=== PATIENT | female | born 1995 | race Caucasian/White ===

== ENCOUNTER 2017-06-05 16:31 | Emergency (ER) | payer OTHER ==
[2017-06-05 16:43] VITALS: BP 97/48; PULSE 70; TEMP 98.5; BMI 53.4
[2017-06-05 19:26] LABS: URINE APPEARANCE CLEAR; URINE BILIRUBIN NEGATIVE (NEGATIVE); URINE BLOOD NEGATIVE (NEGATIVE); URINE COLOR LTYELLOW; URINE GLUCOSE (UA) NEGATIVE (NEGATIVE); URINE KETONE NEGATIVE (NEGATIVE); URINE NITRITE NEGATIVE (NEGATIVE); URINE PROTEIN NEGATIVE (NEGATIVE); URINE UROBILINOGEN NEGATIVE mg/dL (0.2-1.0)
[2017-06-05 19:28] LABS: HCG,QUALITATIVE URINE POSITIVE; URINE LEUK ESTERASE 2+ (NEGATIVE)
[2017-06-05 19:50] LABS: EPI CELLS RARE /HPF (FEW); URINE BACTERIA RARE /hpf (NONE SEEN)
--- NOTE | 2017-06-05 21:44 | PDOC ---
History of Present Illness <Jenifer Brown - Last Filed: 06/05/17 23:38> - History of Present Illness Initial Comments: 06/05/17 23:59 Patient is a irish-speaking 22F, who presents with frequency and dysuria. Patient's presents today because she was worried of a possible UTI. Upon US results, patient was found to be 10 weeks and 6 days . Patient was unaware that she was and will follow-up with her doctor on [address] Denies vaginal bleeding. Denies hematuria. Denies nausea, vomit, diarrhea. Denies chest pain or shortness of breath. PCP: Jairo Antonio 06/06/17 00:20 <Leydi Cottrell - Last Filed: 06/06/17 00:21> - General Chief Complaint: Urinary Problem Stated Complaint: ABD PAIN (8 WKS ) Time Seen by Provider: 06/05/17 18:14 Past History - Past Medical History Asthma: No Cancer: No Cardiac Disorders: No COPD: No Diabetes: No HTN: No Seizures: No Thyroid Disease: No - Immunization History Immunization Up to Date: Yes - Suicide/Smoking/Psychosocial Hx Smoking History: Never smoked Have you smoked in the past 12 months: No Hx Alcohol Use: No Drug/Substance Use Hx: No Hx Substance Use Treatment: No <Jenifer Brown - Last Filed: 06/05/17 23:38> <Leydi Cottrell - Last Filed: 06/06/17 00:21> - Past Medical History Allergies/Adverse Reactions: Allergies Allergy/AdvReac Type Severity Reaction Status Date / Time No Known Allergies Allergy Verified 06/05/17 16:39 Home Medications: Ambulatory Orders Ferrous Sulfate 325 mg PO BID 05/29/16 Vitamins (Sjr) - 1 tab PO DAILY 05/29/16 Acetaminophen [Tylenol .Regular Strength -] 650 mg PO Q3H PRN #0 tablet Ferrous Sulfate [Feosol] 325 mg PO TIDCM ud 05/30/16 Ibuprofen [Motrin -] 200 mg PO Q4H PRN #0 tablet 05/30/16 Vitamins (Sjr) - 1 tab PO DAILY tablet 05/30/16 Review of Systems - Review of Systems Comments:: 06/06/17 00:03 CONSTITUTIONAL: Absent: fever, no chills, no fatigue EYES: Absent: visual changes ENT: Absent: ear pain, no sore throat CARDIOVASCULAR: Absent: chest pain, no palpitations RESPIRATORY: Absent: cough, no SOB GI: Absent: abdominal pain, no nausea, no vomiting, no constipation, no diarrhea GENITOURINARY: Present: dysuria, frequency Absent: no hematuria MUSCULOSKELETAL: Absent: back pain, no arthralgia, no myalgia SKIN: Absent: rash NEURO: Absent: headache <Leydi Cottrell - Last Filed: 06/06/17 00:21> *Physical Exam - Vital Signs Last Vital Signs Temp Pulse Resp BP Pulse Ox 98.5 F 70 18 97/48 100 06/05/17 16:39 06/05/17 16:39 06/05/17 16:39 06/05/17 16:39 06/05/17 16:39 <KevinJenifer Martha - Last Filed: 06/05/17 23:38> - Vital Signs Last Vital Signs Temp Pulse Resp BP Pulse Ox 98.5 F 70 18 97/48 100 06/05/17 16:39 06/05/17 16:39 06/05/17 16:39 06/05/17 16:39 06/05/17 16:39 - Physical Exam Comments: 06/06/17 00:05 GENERAL: Well-appearing, well-nourished. No apparent distress. HEENT: Normocephalic, atraumatic. PERRL, EOM intact. CARDIOVASCULAR: Normal S1, S2. Regular rate and rhythm. PULMONARY: Clear to auscultation bilaterally. ABDOMEN: Soft, non-distended, non-tender. EXTREMITIES: Normal ROM in all four extremities. No gross deformities. SKIN: Warm, dry. No rash NEUROLOGICAL: No focal neurological deficits. <Leydi Cottrell - Last Filed: 06/06/17 00:21> ED Treatment Course - ADDITIONAL ORDERS Additional order review: Laboratory Results 06/05/17 06/05/17 20:24 19:10 Beta HCG, Quant 93574.8 Urine Color Ltyellow Urine Appearance Clear Urine pH 8.0 Ur Specific [place] 1.004 Urine Protein Negative Urine Glucose (UA) Negative Urine Ketones Negative Urine Blood Negative Urine Nitrite Negative Urine Bilirubin Negative Urine Urobilinogen Negative Ur Leukocyte Esterase 2+ H Urine WBC (Auto) <1 Urine RBC (Auto) <1 Ur Epithelial Cells Rare Urine Bacteria Rare Urine HCG, Qual Positive - RADIOLOGY Radiology Studies Ordered: Category Date Time Status TRANSVAGINAL US PREG [US] Stat Ultrasound 06/05/17 21:41 Ordered <KevinJenifer Martha - Last Filed: 06/05/17 23:38> - ADDITIONAL ORDERS Additional order review: Laboratory Results 06/05/17 06/05/17 20:24 19:10 Beta HCG, Quant 02118.8 Urine Color Ltyellow Urine Appearance Clear Urine pH 8.0 Ur Specific [place] 1.004 Urine Protein Negative Urine Glucose (UA) Negative Urine Ketones Negative Urine Blood Negative Urine Nitrite Negative Urine Bilirubin Negative Urine Urobilinogen Negative Ur Leukocyte Esterase 2+ H Urine WBC (Auto) <1 Urine RBC (Auto) <1 Ur Epithelial Cells Rare Urine Bacteria Rare Urine HCG, Qual Positive - RADIOLOGY Radiograph Interpretation: 06/05/17 23:59 US OB Findings: Positive for a single live intrauterine gestation with measurements corresponding to approximately 10 weeks 6 days. A yolk sac is visualized. heart rate is approximately 148 beats per minute. Normal right ovary. 1 cm left ovarian cyst. Reported by: Dann Pitts MD 06/05/2017 23:33 <Leydi Cottrell - Last Filed: 06/06/17 00:21> *DC/Admit/Observation/Transfer <KevinJenifer Martha - Last Filed: 06/05/17 23:38> <Leydi Cottrell - Last Filed: 06/06/17 00:21> Diagnosis at time of Disposition: Qualifiers: Weeks of gestation: 10 weeks Qualified Code(s): Z3A.10 - 10 weeks gestation of - Discharge Dispostion Disposition: HOME Condition at time of disposition: Stable - Referrals Referrals: Jairo Antonio MD [Primary Care Provider] - - Patient Instructions Printed Discharge Instructions: DI for -- Discomforts and Remedies Additional Instructions: please follow up with your foot tender Print Language: CROATIAN - Post Discharge Activity
== END 2017-06-05 23:43 | disposition home or self-care (01) ==
LOC: JER 16:31 → JERFT 16:31 → JER 23:43
DX: O26.891 Other specified pregnancy related conditions, first trimester (principal); O34.81 Maternal care for other abnormalities of pelvic organs, first trimester; N83.202 Unspecified ovarian cyst, left side; Z3A.10 10 weeks gestation of pregnancy
CPT/HCPCS: 36415; 76817-TC; 81003; 81015; 84702; 84703; 87086; 99281-25

== ENCOUNTER 2019-06-25 17:29 | Emergency (ER) | payer OTHER ==
--- NOTE | 2019-06-25 17:53 | PDOC ---
Rapid Medical Evaluation Medical Evaluation: Allergies Allergy/AdvReac Type Severity Reaction Status Date / Time No Known Allergies Allergy Verified 06/05/17 16:39 I have performed a brief in-person evaluation of this patient. The patient presents with a chief complaint of: dysuria x 1 week and LBP x 3 days; is 11 weeks ; whitish vaginal d/c as well, denies vag bleeding Pertinent physical exam findings: Pelvic deferred I have ordered the following: Labs, pelvic US The patient will proceed to the ED for further evaluation. 06/25/19 17:51
[2019-06-25 17:54] VITALS: PULSE 75; TEMP 98.1; BMI 29.0
[2019-06-25 18:40] LABS: BASO % 0.6 % (0-2.0); EOS % 1.6 % (0-4.5); HEMATOCRIT 36.5 % (32.4-45.2); HEMOGLOBIN 12.2 GM/dL (10.7-15.3); LYMPH % 22.2 % (8-40); MCH 30.3 pg (25.7-33.7); MCHC 33.5 g/dl (32.0-36.0); MEAN CELL VOLUME 90.5 fl (80-96); MEAN PLT VOLUME 8.3 fl (7.5-11.1); MONO % 6.3 % (3.8-10.2); NEUT % 69.3 % (42.8-82.8); PLATELET COUNT 206 K/MM3 (134-434); RBC 4.03 M/mm3 (3.60-5.2); RDW 13.7 % (11.6-15.6); WHITE BLOOD COUNT 7.7 K/mm3 (4.0-10.0)
[2019-06-25 18:56] LABS: EPI CELLS 3.4 /HPF (0-5/HPF); HYALINE CASTS 2 /lpf (0-8); PH,URINE 5.5 (5.0-8.0); URINE APPEARANCE CLEAR; URINE BACTERIA 24.4 /hpf (NEGATIVE); URINE BILIRUBIN NEGATIVE (NEGATIVE); URINE COLOR YELLOW; URINE GLUCOSE (UA) NEGATIVE (NEGATIVE); URINE KETONE NEGATIVE (NEGATIVE); URINE LEUK ESTERASE TRACE (NEGATIVE); URINE NITRITE NEGATIVE (NEGATIVE); URINE PROTEIN NEGATIVE (NEGATIVE); URINE RBC 2 /hpf (0-4); URINE WBC 1 /hpf (0-5)
[2019-06-25 19:45] LABS: ALBUMIN 3.4 g/dl (3.4-5.0); BILIRUBIN,TOTAL 0.4 mg/dL (0.2-1); BLOOD UREA NITROGEN 7.3 mg/dL (7-18); CALCIUM 8.9 mg/dL (8.5-10.1); CREATININE 0.4 mg/dL (0.55-1.3); POTASSIUM 3.6 mmol/L (3.5-5.1); TOT PROT 6.8 g/dl (6.4-8.2)
--- NOTE | 2019-06-25 20:58 | PDOC ---
History of Present Illness - General Chief Complaint: Pain Stated Complaint: BACK PAIN/11 WKS PREG. Time Seen by Provider: 06/25/19 17:51 Exam Limitations: Language Barrier (ciracom) - History of Present Illness Initial Comments: 06/25/19 21:09 24 year old female c/o back pain/ vaginal discharge x 1 week reports that she is 11 weeks . + dysuria , frequency of urinations,.denies vaginal bleeding, urinary symptoms. 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 Past History - Past Medical History Allergies/Adverse Reactions: Allergies Allergy/AdvReac Type Severity Reaction Status Date / Time No Known Allergies Allergy Verified 06/25/19 17:54 Home Medications: Ambulatory Orders Ferrous Sulfate 325 mg PO BID 05/29/16 Vitamins (Sjr) - 1 tab PO DAILY tablet 05/30/16 Acetaminophen [Tylenol .Regular Strength -] 650 mg PO Q3H PRN tablet 12/21/17 Ferrous Sulfate [Feosol] 325 mg PO BIDWM tab 12/21/17 Ibuprofen [Motrin -] 200 mg PO Q4H PRN tablet 12/21/17 Vitamins (Sjr) - 1 tab PO DAILY tablet 12/21/17 Cephalexin Monohydrate [Keflex -] 500 mg PO BID #20 capsule 06/25/19 Miconazole Nitrate 1 applic TP BID #1 cream..g. 06/25/19 Asthma: No Cancer: No Cardiac Disorders: No COPD: No Diabetes: No HTN: No Seizures: No Thyroid Disease: No - Immunization History Immunization Up to Date: Yes - Psycho Social/Smoking Cessation Hx Smoking History: Never smoked Have you smoked in the past 12 months: No Hx Alcohol Use: No Drug/Substance Use Hx: No Hx Substance Use Treatment: No Review of Systems - Review of Systems Able to Perform ROS?: Yes Is the patient limited Malagasy proficient: No ABD/GI: No: Symptoms Reported, See HPI, Abdominal Distended, Abd. Pain w/ defecation, Blood Streaked Bowels, Constipated, Diarrhea, Difficulty Swallowing , Nausea, Poor Appetite, Poor Fluid Intake, Rectal Bleeding, Vomiting, Indigestion, Abdominal cramping, Tarry Stools, Other : Yes: Dysuria, Frequency. No: Symptoms Reported, See HPI, Burning, Discharge , Flank Pain, Hematuria, Incontinence, Pain, Urgency, Testicular Mass, Testicular Swelling, Lesions, Testicular Pain, Other Musculoskeletal: Yes: Back Pain. No: Symptoms Reported, See HPI, Gout, Joint Pain, Joint Swelling, Muscle Pain, Muscle Weakness, Neck Pain, Joint Stiffness, Other *Physical Exam - Vital Signs Last Vital Signs Temp Pulse Resp BP Pulse Ox 98.1 F 75 18 98/54 L 99 06/25/19 17:50 06/25/19 17:50 06/25/19 17:50 06/25/19 17:50 06/25/19 17:50 - Physical Exam General Appearance: Yes: Appropriately Dressed Respiratory/Chest: positive: Lungs Clear Female Pelvic Exam: positive: normal external exam, cervical os closed, other ( cottage cheese appearing vaginal discharge) Gastrointestinal/Abdominal: positive: Normal Bowel Sounds, Soft. negative: Tender Integumentary: positive: Normal Color, Dry, Warm Neurologic: positive: Fully Oriented, Alert, Normal Mood/Affect ED Treatment Course - LABORATORY CBC & Chemistry Diagram: 06/25/19 18:10 06/25/19 18:10 - ADDITIONAL ORDERS Additional order review: Laboratory Results 06/25/19 06/25/19 18:10 18:10 Sodium 139 Potassium 3.6 Chloride 105 Carbon Dioxide 28 Anion Gap 7 L BUN 7.3 Creatinine 0.4 L Est GFR (CKD-EPI)AfAm 166.61 Est GFR (CKD-EPI)NonAf 143.75 Random Glucose 97 Calcium 8.9 Total Bilirubin 0.4 AST 21 ALT 36 Alkaline Phosphatase 74 Total Protein 6.8 Albumin 3.4 Beta HCG, Quant 71353.8 Urine Color Yellow Urine Appearance Clear Urine pH 5.5 D Ur Specific [place] 1.021 Urine Protein Negative Urine Glucose (UA) Negative Urine Ketones Negative Urine Blood Trace Urine Nitrite Negative Urine Bilirubin Negative Urine Urobilinogen 1.0 Ur Leukocyte Esterase Trace Urine WBC (Auto) 1 Urine RBC (Auto) 2 Urine Casts (Auto) 2 U Epithel Cells (Auto) 3.4 Urine Bacteria (Auto) 24.4 06/25/19 18:10 RBC 4.03 MCV 90.5 MCHC 33.5 RDW 13.7 MPV 8.3 Neutrophils % 69.3 Lymphocytes % 22.2 D Monocytes % 6.3 Eosinophils % 1.6 Basophils % 0.6 ED Progress Note - Progress Note Progress Note: 06/25/19 21:15 A: uti P: US cbc cmp beta hcg UA Discharge - Discharge Information Problems reviewed: Yes Clinical Impression/Diagnosis: Candidiasis, vagina UTI (urinary tract infection) Qualifiers: Urinary tract infection type: acute cystitis Hematuria presence: without hematuria Qualified Code(s): N30.00 - Acute cystitis without hematuria Qualifiers: Weeks of gestation: 12 weeks Qualified Code(s): Z3A.12 - 12 weeks gestation of Condition: Fair Disposition: HOME - Additional Discharge Information Prescriptions: Cephalexin Monohydrate [Keflex -] 500 mg PO BID #20 capsule Miconazole Nitrate 1 applic TP BID #1 cream..g. - Follow up/Referral - Patient Discharge Instructions Patient Printed Discharge Instructions: Urinary Tract Infection Additional Instructions: Drink plenty of fluids Take cephalexin as prescribed Follow-up with your primary care doctor as soon as possible. You need to repeat urine test once your antibiotic is completed. We will call you if you're antibiotic needs to be changed. - Post Discharge Activity Work/Back to School Note: Back to Work
[2019-06-25 22:18] VITALS: BP 104/86
== END 2019-06-25 22:18 | disposition home or self-care (01) ==
LOC: JER 17:29
DX: O26.891 Other specified pregnancy related conditions, first trimester (principal); O98.811 Other maternal infectious and parasitic diseases complicating pregnancy, first trimester; B37.3 Candidiasis of vulva and vagina; O23.11 Infections of bladder in pregnancy, first trimester; N30.00 Acute cystitis without hematuria; Z3A.12 12 weeks gestation of pregnancy
CPT/HCPCS: 36415; 76801-TC; 80053; 81003; 84702; 85025; 87086; 99284-25

== ENCOUNTER 2020-01-04 02:20 | Inpatient (IN) | payer OTHER ==
[2020-01-04] MEDS ORDERED: OXYTOCIN 20 UNITS in 0.9% NS 20 UNIT/1,000 ML INFUS.BAG IV ONE ×2 (07:31→09:27)
[2020-01-04] MEDS ORDERED: DEXTROSE 5%-LACTATED RINGERS 1,000 ML IV SCH (07:45)
--- NOTE | 2020-01-04 07:45 | HP ---
Past Medical History - Primary Care Physician PCP:: Jesus Srivastava - Admission Chief Complaint: 40 weeks, labor History of Present Illness: 24 yo f in labor cx 6 cm, 100 vx 0 ,mi, fhr cat 1, regular contraction, care at [facility] ,no complication History Source: Patient Limitations to Obtaining History: Language Barrier - Past Medical History Gastrointestinal: Yes: Constipation. No: Hemorrhoids ...: 5 ...Para: 3 ...Term: 3 ...: 0 ...Spon : 1 ...Induced : 0 ...Living Children: 3 ...LMP: 04/10/19 ... Weeks Gestation by Dates: 38.3 ...EDC by Dates: 01/15/20 ...EDC by Sono: 01/04/20 Heme/Onc: Yes: Anemia (rx po iron & vit) - Past Surgical History Past Surgical History: Yes: None Hx Myomectomy: No Hx Transabdominal Cerclage: No - Smoking History Smoking history: Never smoked Have you smoked in the past 12 months: No - Alcohol/Substance Use Hx Alcohol Use: No History of Substance Use: reports: None - Social History Usual Living Arrangement: Yes: With Spouse History of Recent Travel: No Home Medications - Allergies Allergies/Adverse Reactions: Allergies Allergy/AdvReac Type Severity Reaction Status Date / Time No Known Allergies Allergy Verified 06/25/19 17:54 - Home Medications Home Medications: Ambulatory Orders Ferrous Sulfate 325 mg PO BID 05/29/16 Vitamins (Sjr) - 1 tab PO DAILY tablet 05/30/16 Acetaminophen [Tylenol .Regular Strength -] 650 mg PO Q3H PRN tablet 12/21/17 Ferrous Sulfate [Feosol] 325 mg PO BIDWM tab 12/21/17 Ibuprofen [Motrin -] 200 mg PO Q4H PRN tablet 12/21/17 Vitamins (Sjr) - 1 tab PO DAILY tablet 12/21/17 Cephalexin Monohydrate [Keflex -] 500 mg PO BID #20 capsule 06/25/19 Miconazole Nitrate 1 applic TP BID #1 cream..g. 06/25/19 Review of Systems - Review of Systems Constitutional: reports: No Symptoms Eyes: reports: No Symptoms HENT: reports: No Symptoms Neck: reports: No Symptoms Cardiovascular: reports: No Symptoms Respiratory: reports: No Symptoms Gastrointestinal: reports: No Symptoms Genitourinary: reports: No Symptoms Breasts: reports: No Symptoms Reported Musculoskeletal: reports: No Symptoms Integumentary: reports: No Symptoms Neurological: reports: No Symptoms Endocrine: reports: No Symptoms Hematology/Lymphatic: reports: No Symptoms Psychiatric: reports: No Symptoms Physical Exam - Maternity Vital Signs: Vital Signs Temperature 98.3 F 01/04/20 03:00 Pulse Rate 59 L 01/04/20 03:00 Respiratory Rate 18 01/04/20 03:00 Blood Pressure 121/66 01/04/20 03:00 O2 Sat by Pulse Oximetry (%) Constitutional: Yes: Well Nourished, No Distress, Calm Eyes: Yes: WNL, Conjunctiva Clear, EOM Intact HENT: Yes: WNL, Atraumatic, Normocephalic Neck: Yes: WNL, Supple, Trachea Midline Cardiovascular: Yes: WNL, Regular Rate and Rhythm Breast(s): Yes: WNL - Abdominal Exam/OB Fundal Height: 38 Number of Fetuses: Single Presentation: Vertex Contractions: Yes Regularity: Regular Intensity: Mod/Strong Monitor Mode: External Heart Rate Location: [facility] Category: I Accelerations: Non-Uniform Decelerations: None - Vaginal Exam/OB Vaginal Bleeding: No Speculum Exam: No Dilatation (cm): 6 Effacement (%): 80 Amniotic Membrane Status: Intact Presentation: Vertex/Position Station: 0 - Physical Exam Musculoskeletal: Yes: WNL Extremities: Yes: WNL Edema: LLE: Trace, RLE: Trace Deep Tendon Reflex Grade: Normal +2 Psychiatric: Yes: WNL Hemorrhage Risk Assessment - Risk Factors Medium Risk Factors: Yes: Multiple gestation Risk Score: 1 Risk Level: Medium Risk Problem List - Problems (1) 40 weeks gestation of Code(s): Z3A.40 - 40 WEEKS GESTATION OF (2) Labor established Code(s): [id number] - Assessment/Plan admit fhm gbs negative expect vaginal delivery declined pain meds
[2020-01-04] MEDS ORDERED: METHYLERGONOVINE MALEATE 0.2 MG/1 ML AMP IM PRN (08:09)
[2020-01-04] MEDS ORDERED: WITCH HAZEL 50% (TUCKS) 40 PAD/JAR PAD TP PRN (08:09)
[2020-01-04] MEDS ORDERED: BISACODYL 10 MG SUPP.RECT RC PRN (08:09)
[2020-01-04] MEDS ORDERED: BENZOCAINE 28 GM HEMORRHOIDAL OINTMENT TP PRN (08:09)
[2020-01-04] MEDS ORDERED: BENZOCAINE 20% 57 GM BOTTLE TP PRN (08:09)
--- NOTE | 2020-01-04 08:14 | PN ---
Delivery - Delivery Vaginal Delivery: Spontaneous Type of Anesthesia: None Episiotomy/Laceration: None (cx full , head delivered , veronica, no cord, ant.and post, shoulder with no difficulty . live baby girl 9/9 , placenta complete, no laceration , ebl 300cc, baby bonded with mom)
[2020-01-04] MEDS ORDERED: OXYTOCIN 20 UNITS in 0.9% NS 20 UNIT/1,000 ML INFUS.BAG IV SCH (08:15)
[2020-01-04] MEDS ORDERED: IBUPROFEN 600 MG TABLET (FP) PO ONE (08:28)
[2020-01-04] MEDS ORDERED: ACETAMINOPHEN 325 MG TABLET (FP) ONE (08:28)
[2020-01-04] MEDS: ACETAMINOPHEN 325 MG TABLET (FP) PO PRN ×2 (08:34→14:06)
[2020-01-04] MEDS: IBUPROFEN 600 MG TABLET (FP) PO PRN ×2 (08:34→14:06)
[2020-01-04 08:49] VITALS: BMI 32.0
[2020-01-04 08:52] LABS: INR 0.88 (0.83-1.09); PROTHROMBIN TIME (PATIENT) 10.4 SEC (9.7-13.0)
[2020-01-04 08:55] LABS: ACTIVATED PTT 27.2 SECONDS (25.2-36.5)
[2020-01-04 09:22] LABS: BLOOD UREA NITROGEN 3.7 mg/dL (7-18); CALCIUM 7.9 mg/dL (8.5-10.1); CREATININE 0.5 mg/dL (0.55-1.3); POTASSIUM 3.7 mmol/L (3.5-5.1)
[2020-01-04 09:28] LABS: BASO % 0.4 % (0-2.0); EOS % 0.4 % (0-4.5); HEMATOCRIT 36.2 % (32.4-45.2); HEMOGLOBIN 11.7 GM/dL (10.7-15.3); LYMPH % 18.9 % (8-40); MCH 27.2 pg (25.7-33.7); MCHC 32.3 g/dl (32.0-36.0); MEAN CELL VOLUME 84.4 fl (80-96); MONO % 5.9 % (3.8-10.2); NEUT % 74.4 % (42.8-82.8); PLATELET COUNT 210 K/MM3 (134-434); RDW 14.5 % (11.6-15.6)
[2020-01-04] MEDS: FERROUS SO4 325 MG TABLET (FP) PO SCH (18:39)
[2020-01-05] MEDS: FERROUS SO4 325 MG TABLET (FP) PO SCH ×2 (09:19→18:23)
[2020-01-05] MEDS: ACETAMINOPHEN 325 MG TABLET (FP) PO PRN (09:20)
[2020-01-05] MEDS: IBUPROFEN 600 MG TABLET (FP) PO PRN (09:20)
[2020-01-05] MEDS: PRENATAL VITAMINS W/ FOLIC ACID TABLET (FP) PO SCH ×2 (09:20→13:01)
[2020-01-05] MEDS ORDERED: DIPHTH,PERTUSS(ACELL),TET 0.5 ML DISP.SYRIN IM ONE (10:00)
[2020-01-05 10:03] LABS: BASO % 0.6 % (0-2.0); EOS % 1.3 % (0-4.5); HEMATOCRIT 33.3 % (32.4-45.2); HEMOGLOBIN 10.8 GM/dL (10.7-15.3); LYMPH % 27.2 % (8-40); MCH 27.7 pg (25.7-33.7); MCHC 32.6 g/dl (32.0-36.0); MEAN CELL VOLUME 84.9 fl (80-96); MONO % 5.8 % (3.8-10.2); NEUT % 65.1 % (42.8-82.8); PLATELET COUNT 196 K/MM3 (134-434); RBC 3.92 M/mm3 (3.60-5.2); RDW 14.6 % (11.6-15.6); WHITE BLOOD COUNT 6.6 K/mm3 (4.0-10.0)
--- NOTE | 2020-01-05 12:15 | PN ---
Post Progress Note - Subjective Subjective: 24 yo Para 4, status post vaginal delivery, seen and evaluated. Doing well. Post Day: 1 Type of Delivery: Vital Signs: Vital Signs Temperature 98.1 F 01/04/20 20:21 Pulse Rate 70 01/04/20 20:21 Respiratory Rate 20 01/04/20 20:21 Blood Pressure 96/60 01/04/20 20:21 O2 Sat by Pulse Oximetry (%) 100 01/04/20 09:45 Breast Exam: Yes: Soft Uterus: Yes: Fundus Firm Abdomen/GI: Yes: Abdomen soft, Tolerating PO Lochia: Yes: Rubra Lochia, amount: Moderate Extremities: Yes: Calves non-tender Activity: Ambulating - Labs Labs: CBC WBC 6.6 K/mm3 (4.0-10.0) 01/05/20 09:30 RBC 3.92 M/mm3 (3.60-5.2) 01/05/20 09:30 Hgb 10.8 GM/dL (10.7-15.3) 01/05/20 09:30 Hct 33.3 % (32.4-45.2) 01/05/20 09:30 MCV 84.9 fl (80-96) 01/05/20 09:30 MCH 27.7 pg (25.7-33.7) 01/05/20 09:30 MCHC 32.6 g/dl (32.0-36.0) 01/05/20 09:30 RDW 14.6 % (11.6-15.6) 01/05/20 09:30 Plt Count 196 K/MM3 (134-434) 01/05/20 09:30 MPV 9.0 fl (7.5-11.1) 01/05/20 09:30 Absolute Neuts (auto) 4.3 K/mm3 (1.5-8.0) 01/05/20 09:30 Neutrophils % 65.1 % (42.8-82.8) 01/05/20 09:30 Lymphocytes % 27.2 % (8-40) D 01/05/20 09:30 Monocytes % 5.8 % (3.8-10.2) 01/05/20 09:30 Eosinophils % 1.3 % (0-4.5) D 01/05/20 09:30 Basophils % 0.6 % (0-2.0) 01/05/20 09:30 Nucleated RBC % 0 % (0-0) 01/05/20 09:30 Problem List - Problems (1) Status post normal vaginal delivery Code(s): [id number] - Assessment/Plan Status post vaginal delivery Stable Continue routine care
[2020-01-05 21:36] VITALS: BP 103/66
[2020-01-05] MEDS ORDERED: SENNOSIDES/DOCUSATE COMBO (SENNA PLUS) TABLET (UD) PO PRN (22:00)
[2020-01-06 09:00] VITALS: PULSE 75; TEMP 98.8
[2020-01-06] MEDS: FERROUS SO4 325 MG TABLET (FP) PO SCH (09:55)
[2020-01-06] MEDS: PRENATAL VITAMINS W/ FOLIC ACID TABLET (FP) PO SCH (09:55)
--- NOTE | 2020-01-09 15:10 | DS ---
Physical Exam-ENTRY LEVEL FINANCE Vital Signs: Vital Signs Temperature 98.8 F 01/06/20 08:30 Pulse Rate 75 01/06/20 08:30 Respiratory Rate 18 01/06/20 08:30 Blood Pressure 103/66 01/06/20 08:30 O2 Sat by Pulse Oximetry (%) 100 01/04/20 09:45 Constitutional: Yes: No Distress Eyes: Yes: Conjunctiva Clear HENT: Yes: Atraumatic Neck: Yes: Supple Cardiovascular: Yes: Regular Rate and Rhythm Respiratory: Yes: Regular Gastrointestinal: Yes: Normal Bowel Sounds External Genitalia: Yes: Normal Vaginal Exam: Yes: Normal Cervix: Yes: Normal Uterus: Yes: Firm ....Post : Yes: Uterus firm, Moderate lochia serosa Musculoskeletal: Yes: WNL Extremities: Yes: WNL Neurological: Yes: Alert, Oriented ...Motor Strength: WNL Psychiatric: Yes: Alert, Oriented Labs: CBC, BMP 01/05/20 09:30 01/04/20 08:10 Delivery - Delivery Vaginal Delivery: Spontaneous Type of Anesthesia: None Episiotomy/Laceration: None EBL (cc): 300 Delivery, Single - Stages of Labor Date 1st Stage Initiatied: 01/03/20 Time 1st Stage Initiated: 19:00 Date 2nd Stage Initiated: 01/04/20 Time 2nd Stage Initiated: 07:50 Date of Delivery: 01/04/20 Time of Delivery: 07:56 Time Placenta Delivered: 08:00 - 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: No Gender: Female Weight: 6 lb 11 oz Position: Left, OA Total Hours ROM (Hrs/Mins): 0hrs 30min - 1 Minute Total Score: 9 5 Minutes Total Score: 9 - Feeding Plan Initial Plan: Elected not to breastfeed exclusively throughout hospitalization Discharge Summary Problems reviewed: Yes Reason For Visit: LABOR Procedures: Principal: Normal spontaneous vaginal delivery Hospital Course: Routine care Health Concerns: None Plan of Treatment: Analgesia as needed F/U in clinic in 6 weeks Goals: Resume regular activities in 6 weeks Condition: Good - Instructions Diet, Activity, Other Instructions: Regular diet No douching, no sexual intercourse x 6 weeks F/U in clinic in 6 weeks Referrals: Ashly Kern MD [Staff Physician] - Disposition: HOME - Home Medications Comprehensive Discharge Medication List: Ambulatory Orders Ferrous Sulfate 325 mg PO BID 05/29/16 Vitamins (Sjr) - 1 tab PO DAILY tablet 05/30/16 Acetaminophen [Tylenol .Regular Strength -] 650 mg PO Q3H PRN tablet 12/21/17 Ferrous Sulfate [Feosol] 325 mg PO BIDWM tab 12/21/17 Ibuprofen [Motrin -] 200 mg PO Q4H PRN tablet 12/21/17 Vitamins (Sjr) - 1 tab PO DAILY tablet 12/21/17 Cephalexin Monohydrate [Keflex -] 500 mg PO BID #20 capsule 06/25/19 Miconazole Nitrate 1 applic TP BID #1 cream..g. 06/25/19
== END 2020-01-06 14:30 | disposition home or self-care (01) | DRG 560 ==
LOC: JDEL 02:20 → JLDR 07:19 → J3W 12:30
PROVIDERS: ADMIT Obstetrics & Gynecology; ATTEND Obstetrics & Gynecology
PROC: 10E0XZZ Delivery of Products of Conception, External Approach (ICD-10-PCS; principal; 2020-01-04)
DX: O48.0 Post-term pregnancy (principal); Z37.0 Single live birth; Z3A.40 40 weeks gestation of pregnancy; Z86.2 Personal history of diseases of the blood and blood-forming organs and certain disorders involving the immune mechanism; Z87.19 Personal history of other diseases of the digestive system
CPT/HCPCS: 36415; 59025; 59409; 80048; 85025; 85610; 85730; 86780; 86850; 86900; 86901; 90715; U0003

== ENCOUNTER 2020-11-18 20:56 | Emergency (ER) | payer OTHER ==
[2020-11-18 21:52] VITALS: BP 121/78; PULSE 87; TEMP 98.2; BMI 81.1
[2020-11-18] MEDS ORDERED: ACETAMINOPHEN 1000 MG/100 ML VIAL (NON FORMULARY) IVPB ONE (22:06)
[2020-11-18] MEDS ORDERED: METOCLOPRAMIDE HCL INJECTION 10 MG/2 ML VIAL IVPUSH ONE (22:06)
[2020-11-18] MEDS ORDERED: LACTATED RINGERS SOLUTION 1000 ML INFUS.BAG IV ONE (22:06)
[2020-11-18] MEDS ORDERED: ACETAMINOPHEN INJECTION 100 ML IVPB ONE (22:26)
[2020-11-18] MEDS ORDERED: METOCLOPRAMIDE HCL INJECTION 10 MG/2 ML VIAL ONE (22:26)
[2020-11-18 22:55] LABS: BASO % 0.8 % (0-2.0); EOS % 1.1 % (0-4.5); HEMATOCRIT 40.8 % (32.4-45.2); HEMOGLOBIN 13.6 GM/dL (10.7-15.3); LYMPH % 22.6 % (8-40); MCH 29.4 pg (25.7-33.7); MCHC 33.3 g/dl (32.0-36.0); MEAN CELL VOLUME 88.3 fl (80-96); MEAN PLT VOLUME 7.7 fl (7.5-11.1); MONO % 10.7 % (3.8-10.2); NEUT % 64.8 % (42.8-82.8); PLATELET COUNT 192 10^3/uL (134-434); RBC 4.62 M/mm3 (3.60-5.2); RDW 13.4 % (11.6-15.6); WHITE BLOOD COUNT 7.3 K/mm3 (4.0-10.0)
[2020-11-18 23:00] LABS: HCG,QUALITATIVE URINE Negative
[2020-11-18 23:01] LABS: EPI CELLS 16 /uL (0-25.1); HYALINE CASTS 1 /uL (0-3.1); PH,URINE 6.5 (5.0-8.0); URINE APPEARANCE CLEAR; URINE BACTERIA 48 /uL (0-1359); URINE BILIRUBIN NEGATIVE (NEGATIVE); URINE COLOR YELLOW; URINE GLUCOSE (UA) NEGATIVE (NEGATIVE); URINE KETONE NEGATIVE (NEGATIVE); URINE LEUK ESTERASE 2+ (NEGATIVE); URINE NITRITE NEGATIVE (NEGATIVE); URINE PROTEIN TRACE (NEGATIVE); URINE RBC 34 /uL (0-23.9); URINE WBC 209 /uL (0-25.8)
[2020-11-18 23:16] LABS: ALBUMIN 4.1 g/dl (3.4-5.0); BLOOD UREA NITROGEN 15.8 mg/dL (7-18); CALCIUM 8.3 mg/dL (8.5-10.1); MAGNESIUM 2.1 mg/dL (1.8-2.4)
[2020-11-18 23:20] LABS: CREATININE 0.8 mg/dL (0.55-1.3)
[2020-11-18 23:22] LABS: BILIRUBIN,TOTAL 0.4 mg/dL (0.2-1); TOT PROT 7.8 g/dl (6.4-8.2)
[2020-11-18] MEDS ORDERED: SULFAMETHOXAZOLE/TRIMETHOPRIM 800MG/160MG D.S. TABLET PO ONE (23:28)
[2020-11-18] MEDS ORDERED: SULFAMETHOXAZOLE/TRIMETHOPRIM 800MG/160MG D.S. TABLET ONE (23:48)
== END 2020-11-19 00:03 | disposition home or self-care (01) ==
LOC: JER 20:56
PROC: 3E0333Z Introduction of Anti-inflammatory into Peripheral Vein, Percutaneous Approach (ICD-10-PCS; principal; 2020-11-18)
PROC: 3E033GC Introduction of Other Therapeutic Substance into Peripheral Vein, Percutaneous Approach (ICD-10-PCS; 2020-11-18)
DX: N39.0 Urinary tract infection, site not specified (principal)
CPT/HCPCS: 36415; 80053; 81003; 83735; 84703; 85025; 85730; 87086; 87491; 87591; 87661; 99284-25; C9803; J0131; U0003; U0005

== ENCOUNTER 2021-08-03 01:19 | Emergency (ER) | payer OTHER ==
[2021-08-03 01:36] VITALS: BP 110/62; PULSE 71; TEMP 98.4; BMI 24.0
[2021-08-03] MEDS ORDERED: CEPHALEXIN MONOHYDRATE 500 MG CAPSULE (UD) PO ONE (02:28)
[2021-08-03] MEDS ORDERED: DOXYCYCLINE HYCLATE 100 MG CAPSULE PO ONE ×2 (02:38→02:43)
== END 2021-08-03 04:49 | disposition home or self-care (01) ==
LOC: JER 01:19
DX: L03.211 Cellulitis of face (principal)
CPT/HCPCS: 99283-25

== ENCOUNTER 2021-11-21 21:29 | Emergency (ER) | payer OTHER ==
[2021-11-21 21:59] VITALS: BP 104/52; PULSE 67; RESP 18; TEMP 97.2; BMI 25.8
[2021-11-21] MEDS ORDERED: SODIUM CHLORIDE 1,000 ML IV STA (22:20)
[2021-11-21 23:14] LABS: EPI CELLS 31 /uL (0-25.1); HYALINE CASTS 1 /uL (0-3.1); PH,URINE 7.5 (5.0-8.0); URINE APPEARANCE CLEAR; URINE BACTERIA 401 /uL (0-1359); URINE BILIRUBIN NEGATIVE (NEGATIVE); URINE COLOR YELLOW; URINE GLUCOSE (UA) NEGATIVE (NEGATIVE); URINE KETONE NEGATIVE (NEGATIVE); URINE LEUK ESTERASE 2+ (NEGATIVE); URINE NITRITE NEGATIVE (NEGATIVE); URINE PROTEIN NEGATIVE (NEGATIVE); URINE RBC 11 /uL (0-23.9); URINE WBC 30 /uL (0-25.8)
[2021-11-21 23:42] LABS: BASO % 0.6 % (0-2.0); EOS % 2.4 % (0-4.5); HEMATOCRIT 37.8 % (32.4-45.2); HEMOGLOBIN 12.8 GM/dL (10.7-15.3); LYMPH % 28.6 % (8-40); MCH 29.9 pg (25.7-33.7); MCHC 33.9 g/dl (32.0-36.0); MEAN CELL VOLUME 88.4 fl (80-96); MONO % 5.9 % (3.8-10.2); NEUT % 62.5 % (42.8-82.8); PLATELET COUNT 206 10^3/uL (134-434); RBC 4.28 M/mm3 (3.60-5.2); RDW 13.6 % (11.6-15.6)
[2021-11-22 00:10] LABS: BLOOD UREA NITROGEN 13.3 mg/dL (7-18); CALCIUM 8.7 mg/dL (8.5-10.1)
[2021-11-22 00:14] LABS: CREATININE 0.6 mg/dL (0.55-1.3)
[2021-11-22] MEDS ORDERED: CEPHALEXIN MONOHYDRATE 500 MG CAPSULE (UD) PO ONE (00:16)
[2021-11-22] MEDS ORDERED: CEPHALEXIN MONOHYDRATE 500 MG CAPSULE (UD) ONE (00:52)
== END 2021-11-22 01:01 | disposition home or self-care (01) ==
LOC: JER 21:29
PROC: 3E0337Z Introduction of Electrolytic and Water Balance Substance into Peripheral Vein, Percutaneous Approach (ICD-10-PCS; principal; 2021-11-21)
DX: U07.1 COVID-19 (principal); N39.0 Urinary tract infection, site not specified; Z3A.01 Less than 8 weeks gestation of pregnancy
CPT/HCPCS: 0241U-QW; 36415; 76817-TC; 80048; 81003; 84703; 85025; 87086; 99284-25

== ENCOUNTER 2022-07-03 03:00 | Inpatient (IN) | payer OTHER ==
[2022-07-03] MEDS ORDERED: MISOPROSTOL 200 MCG TABLET ONE (15:54)
[2022-07-03] MEDS ORDERED: OXYTOCIN 20 UNITS in 0.9% NS 20 UNIT/1,000 ML INFUS.BAG IV ONE (15:55)
[2022-07-03] MEDS ORDERED: LIDOCAINE HCL 1% PRESERVATIVE FREE - 30ML VIAL ONE (16:17)
[2022-07-03] MEDS ORDERED: WITCH HAZEL 50% (TUCKS) 40 PAD/JAR PAD TP PRN (16:39)
[2022-07-03] MEDS ORDERED: BISACODYL 10 MG SUPP.RECT RC PRN (16:39)
[2022-07-03] MEDS ORDERED: BENZOCAINE 28 GM HEMORRHOIDAL OINTMENT TP PRN (16:39)
[2022-07-03] MEDS ORDERED: MISOPROSTOL 100 MCG TABLET PV ONE (16:40)
[2022-07-03] MEDS ORDERED: OXYTOCIN 20 UNITS in 0.9% NS 20 UNIT/1,000 ML INFUS.BAG IV SCH (16:45)
[2022-07-03] MEDS ORDERED: ELECTROLYTE-148 SOLN 1,000 ML IV SCH (16:45)
[2022-07-03 17:15] VITALS: BMI 29.2
[2022-07-03] MEDS ORDERED: ACETAMINOPHEN 325 MG TABLET (FP) ONE (17:30)
[2022-07-03] MEDS: ACETAMINOPHEN 325 MG TABLET (FP) PO PRN ×2 (17:30→23:53)
[2022-07-03 17:33] LABS: CALCIUM 8.2 mg/dL (8.5-10.1)
[2022-07-03 17:34] LABS: BLOOD UREA NITROGEN 4.6 mg/dL (7-18)
[2022-07-03 17:37] LABS: CREATININE 0.5 mg/dL (0.55-1.3)
[2022-07-03 18:43] LABS: BASO % 0.2 % (0-2.0); EOS % 0.1 % (0-4.5); HEMATOCRIT 30.8 % (32.4-45.2); HEMOGLOBIN 9.9 GM/dL (10.7-15.3); MCH 27.8 pg (25.7-33.7); MEAN CELL VOLUME 86.9 fl (80-96); MEAN PLT VOLUME 7.6 fl (7.5-11.1); MONO % 3.9 % (3.8-10.2); NEUT % 88.8 % (42.8-82.8); PLATELET COUNT 188 10^3/uL (134-434); RBC 3.54 M/mm3 (3.60-5.2); RDW 16.6 % (11.6-15.6); WHITE BLOOD COUNT 13.2 K/mm3 (4.0-10.0)
[2022-07-03 18:48] LABS: INR 1.07 (0.83-1.09); PROTHROMBIN TIME (PATIENT) 12.4 SEC (9.7-13.0)
[2022-07-03] MEDS ORDERED: METHYLERGONOVINE MALEATE 0.2 MG/1 ML AMP IM ONE (20:20)
[2022-07-03] MEDS: IBUPROFEN 600 MG TABLET (FP) PO PRN (20:53)
[2022-07-04 07:58] LABS: BASO % 0.4 % (0-2.0); EOS % 0.7 % (0-4.5); HEMATOCRIT 29.7 % (32.4-45.2); HEMOGLOBIN 9.9 GM/dL (10.7-15.3); LYMPH % 23.4 % (8-40); MCH 28.9 pg (25.7-33.7); MCHC 33.3 g/dl (32.0-36.0); MEAN CELL VOLUME 86.8 fl (80-96); MONO % 7.6 % (3.8-10.2); NEUT % 67.9 % (42.8-82.8); PLATELET COUNT 190 10^3/uL (134-434); RBC 3.42 M/mm3 (3.60-5.2); RDW 16.7 % (11.6-15.6); WHITE BLOOD COUNT 9.7 K/mm3 (4.0-10.0)
[2022-07-04] MEDS: ACETAMINOPHEN 325 MG TABLET (FP) PO PRN ×2 (09:19→23:19)
[2022-07-04] MEDS: IBUPROFEN 600 MG TABLET (FP) PO PRN ×2 (14:27→19:38)
[2022-07-04] MEDS ORDERED: SENNOSIDES/DOCUSATE COMBO (SENNA PLUS) TABLET (UD) PO PRN (22:00)
[2022-07-04 22:25] VITALS: PULSE 75; RESP 16
[2022-07-05] MEDS: IBUPROFEN 600 MG TABLET (FP) PO PRN (05:25)
[2022-07-05 08:37] VITALS: BP 95/57; TEMP 98.1
[2022-07-05] MEDS: ACETAMINOPHEN 325 MG TABLET (FP) PO PRN (08:45)
== END 2022-07-05 15:10 | disposition home or self-care (01) | DRG 560 ==
LOC: JDEL 03:00 → JLDR 15:23 → J3W 20:31
PROVIDERS: ADMIT Student in an Organized Health Care Education/Training Program; ATTEND Student in an Organized Health Care Education/Training Program
PROC: 10E0XZZ Delivery of Products of Conception, External Approach (ICD-10-PCS; principal; 2022-07-03)
PROC: 0UQMXZZ Repair Vulva, External Approach (ICD-10-PCS; 2022-07-03)
DX: O70.0 First degree perineal laceration during delivery (principal); Z3A.39 39 weeks gestation of pregnancy; Z37.0 Single live birth
CPT/HCPCS: 36415; 59025; 59409; 80048; 85025; 85610; 85730; 86780; 86850; 86900; 86901; C9803-CS; U0003; U0005

== ENCOUNTER 2023-07-23 10:22 | Emergency (ER) | payer OTHER ==
[2023-07-23 10:37] VITALS: BP 110/50; PULSE 64; RESP 18; TEMP 97.5; BMI 32.5
[2023-07-23] MEDS ORDERED: ACETAMINOPHEN INJECTION 100 ML IVPB ONE (12:14)
[2023-07-23 12:17] LABS: BASO % 0.5 % (0-2.0); EOS % 2.1 % (0-4.5); HEMATOCRIT 39.4 % (32.4-45.2); HEMOGLOBIN 13.1 GM/dL (10.7-15.3); LYMPH % 24.2 % (8-40); MCH 30.1 pg (25.7-33.7); MCHC 33.3 g/dl (32.0-36.0); MEAN CELL VOLUME 90.5 fl (80-96); MEAN PLT VOLUME 7.6 fl (7.5-11.1); NEUT % 67.2 % (42.8-82.8); PLATELET COUNT 217 10^3/uL (134-434); RBC 4.36 M/mm3 (3.60-5.2); RDW 13.6 % (11.6-15.6); WHITE BLOOD COUNT 6.9 K/mm3 (4.0-10.0)
[2023-07-23 12:22] LABS: EPI CELLS 19 /uL (0-25.1); HYALINE CASTS 1 /uL (0-3.1); PH,URINE 5.5 (5.0-8.0); URINE APPEARANCE CLEAR; URINE BACTERIA 213 /uL (0-1359); URINE BILIRUBIN NEGATIVE (NEGATIVE); URINE COLOR YELLOW; URINE GLUCOSE (UA) NEGATIVE (NEGATIVE); URINE KETONE NEGATIVE (NEGATIVE); URINE LEUK ESTERASE 1+ (NEGATIVE); URINE NITRITE NEGATIVE (NEGATIVE); URINE PROTEIN NEGATIVE (NEGATIVE); URINE RBC 14 /uL (0-23.9); URINE WBC 16 /uL (0-25.8)
[2023-07-23 12:33] LABS: INR 1.05 (0.83-1.09); PROTHROMBIN TIME (PATIENT) 12.2 SEC (9.7-13.0)
[2023-07-23] MEDS: ACETAMINOPHEN 1000 MG/100 ML BAG IVPB ONE (12:35)
[2023-07-23 12:37] LABS: ACTIVATED PTT 32.9 SECONDS (25.2-36.5)
[2023-07-23 12:51] LABS: CALCIUM 8.6 mg/dL (8.5-10.1)
[2023-07-23 12:52] LABS: ALBUMIN 3.5 g/dl (3.4-5.0); BLOOD UREA NITROGEN 11.7 mg/dL (7-18)
[2023-07-23 12:55] LABS: CREATININE 0.5 mg/dL (0.55-1.3)
[2023-07-23 12:56] LABS: BILIRUBIN,TOTAL 0.6 mg/dL (0.2-1)
[2023-07-23 12:57] LABS: TOT PROT 6.7 g/dl (6.4-8.2)
[2023-07-23] MEDS ORDERED: CEPHALEXIN MONOHYDRATE 500 MG CAPSULE (UD) ONE (15:53)
[2023-07-23] MEDS: CEPHALEXIN MONOHYDRATE 500 MG CAPSULE (UD) PO ONE (15:57)
== END 2023-07-23 16:21 | disposition home or self-care (01) ==
LOC: JER 10:22
PROC: 3E033NZ Introduction of Analgesics, Hypnotics, Sedatives into Peripheral Vein, Percutaneous Approach (ICD-10-PCS; principal; 2023-07-23)
DX: O02.1 Missed abortion (principal); R30.0 Dysuria; R10.9 Unspecified abdominal pain
CPT/HCPCS: 36415; 76817-TC; 80053; 81003; 84702; 84703; 85025; 85610; 85730; 86850; 86900; 86901; 87086; 99284-25; J0131

== ENCOUNTER 2023-07-26 13:53 | Emergency (ER) | payer SELFPAY ==
[2023-07-26 14:23] VITALS: RESP 18; BMI 29.8
[2023-07-26] MEDS ORDERED: ACETAMINOPHEN INJECTION 100 ML IVPB ONE (14:33)
[2023-07-26 14:44] LABS: BASO % 0.4 % (0-2.0); EOS % 1.8 % (0-4.5); HEMATOCRIT 36.2 % (32.4-45.2); HEMOGLOBIN 12.3 GM/dL (10.7-15.3); LYMPH % 23.2 % (8-40); MCH 30.6 pg (25.7-33.7); MCHC 34.1 g/dl (32.0-36.0); MEAN CELL VOLUME 89.7 fl (80-96); MEAN PLT VOLUME 7.5 fl (7.5-11.1); MONO % 6.1 % (3.8-10.2); NEUT % 68.5 % (42.8-82.8); PLATELET COUNT 214 10^3/uL (134-434); RBC 4.03 M/mm3 (3.60-5.2); RDW 13.2 % (11.6-15.6); WHITE BLOOD COUNT 7.2 K/mm3 (4.0-10.0)
[2023-07-26] MEDS: SODIUM CHLORIDE 0.9% 500 ML INFUS.BAG IV ONE ×3 (14:44→22:00)
[2023-07-26] MEDS: ACETAMINOPHEN 1000 MG/100 ML BAG IVPB ONE (14:44)
[2023-07-26 14:51] LABS: INR 1.1 (0.83-1.09); PROTHROMBIN TIME (PATIENT) 12.8 SEC (9.7-13.0)
[2023-07-26 15:27] LABS: POTASSIUM 3.7 mmol/L (3.5-5.1)
[2023-07-26 15:29] LABS: CALCIUM 8.5 mg/dL (8.5-10.1)
[2023-07-26 15:30] LABS: ALBUMIN 3.3 g/dl (3.4-5.0); BLOOD UREA NITROGEN 6.6 mg/dL (7-18)
[2023-07-26 15:33] LABS: CREATININE 0.5 mg/dL (0.55-1.3)
[2023-07-26 15:34] LABS: TOT PROT 6.6 g/dl (6.4-8.2)
[2023-07-26 15:35] LABS: BILIRUBIN,TOTAL 0.5 mg/dL (0.2-1)
[2023-07-26] MEDS ORDERED: KETOROLAC TROMETHAMINE 15 MG/ML VIAL ONE (17:34)
[2023-07-26] MEDS: KETOROLAC TROMETHAMINE 15 MG/ML VIAL IVPUSH ONE (17:41)
[2023-07-26 19:56] LABS: BASO % 0.4 % (0-2.0); EOS % 1.5 % (0-4.5); HEMATOCRIT 30.8 % (32.4-45.2); HEMOGLOBIN 10.4 GM/dL (10.7-15.3); LYMPH % 26.3 % (8-40); MCH 30.2 pg (25.7-33.7); MCHC 33.7 g/dl (32.0-36.0); MEAN CELL VOLUME 89.6 fl (80-96); MEAN PLT VOLUME 7.3 fl (7.5-11.1); MONO % 5.7 % (3.8-10.2); NEUT % 66.1 % (42.8-82.8); PLATELET COUNT 213 10^3/uL (134-434); RBC 3.43 M/mm3 (3.60-5.2); RDW 13.4 % (11.6-15.6); WHITE BLOOD COUNT 7.8 K/mm3 (4.0-10.0)
[2023-07-26 21:31] VITALS: PULSE 64; TEMP 97.9
[2023-07-26] MEDS: METHYLERGONOVINE MALEATE 0.2 MG/1 ML AMP IM ONE (22:01)
[2023-07-26 22:28] VITALS: BP 105/59
== END 2023-07-27 00:08 | disposition home or self-care (01) ==
LOC: JER 13:53
PROC: 3E033NZ Introduction of Analgesics, Hypnotics, Sedatives into Peripheral Vein, Percutaneous Approach (ICD-10-PCS; principal; 2023-07-26)
PROC: 3E0333Z Introduction of Anti-inflammatory into Peripheral Vein, Percutaneous Approach (ICD-10-PCS; 2023-07-26)
PROC: 3E023GC Introduction of Other Therapeutic Substance into Muscle, Percutaneous Approach (ICD-10-PCS; 2023-07-26)
DX: O03.9 Complete or unspecified spontaneous abortion without complication (principal); D64.9 Anemia, unspecified
CPT/HCPCS: 36415; 76817-TC; 80053; 84702; 85025; 85610; 85730; 86850; 86900; 86901; 99284-25; J0131

== ENCOUNTER 2023-07-27 13:41 | Emergency (ER) | payer SELFPAY ==
[2023-07-27 13:51] VITALS: RESP 18; BMI 26.2
[2023-07-27] MEDS ORDERED: ACETAMINOPHEN INJECTION 100 ML IVPB ONE (15:10)
[2023-07-27] MEDS ORDERED: KETOROLAC TROMETHAMINE 30 MG/1 ML VIAL ONE (15:11)
[2023-07-27 15:18] LABS: BASO % 0.5 % (0-2.0); EOS % 1.5 % (0-4.5); HEMATOCRIT 30.3 % (32.4-45.2); HEMOGLOBIN 10.1 GM/dL (10.7-15.3); LYMPH % 16.6 % (8-40); MCH 30.4 pg (25.7-33.7); MCHC 33.5 g/dl (32.0-36.0); MEAN CELL VOLUME 90.7 fl (80-96); MEAN PLT VOLUME 7.4 fl (7.5-11.1); MONO % 4.9 % (3.8-10.2); NEUT % 76.5 % (42.8-82.8); PLATELET COUNT 207 10^3/uL (134-434); RBC 3.34 M/mm3 (3.60-5.2)
[2023-07-27] MEDS: ACETAMINOPHEN 1000 MG/100 ML BAG IVPB ONE (15:19)
[2023-07-27] MEDS: SODIUM CHLORIDE 1,000 ML IV ONE (15:19)
[2023-07-27] MEDS: KETOROLAC TROMETHAMINE 30 MG/1 ML VIAL IVPUSH ONE (15:20)
[2023-07-27 15:26] LABS: INR 1.1 (0.83-1.09); PROTHROMBIN TIME (PATIENT) 12.8 SEC (9.7-13.0)
[2023-07-27 15:29] LABS: ACTIVATED PTT 30.2 SECONDS (25.2-36.5)
[2023-07-27 15:38] LABS: EPI CELLS 2 /uL (0-25.1); HYALINE CASTS 0 /uL (0-3.1); PH,URINE 5.5 (5.0-8.0); URINE APPEARANCE TURBID; URINE BACTERIA 0 /uL (0-1359); URINE BILIRUBIN 1+ (NEGATIVE); URINE COLOR RED; URINE GLUCOSE (UA) NEGATIVE (NEGATIVE); URINE KETONE NEGATIVE (NEGATIVE); URINE LEUK ESTERASE TRACE (NEGATIVE); URINE NITRITE NEGATIVE (NEGATIVE); URINE PROTEIN 1+ (NEGATIVE); URINE RBC 33290 /uL (0-23.9); URINE UROBILINOGEN 0.2 mg/dL (0.2-1.0); URINE WBC 23 /uL (0-25.8)
[2023-07-27 15:42] LABS: HCG,QUALITATIVE URINE Positive
[2023-07-27] MEDS ORDERED: MAG HYDROX/AL HYDROX/SIMETH 30 ML UNIT-DOSE CUP ONE (16:15)
[2023-07-27] MEDS: SODIUM CHLORIDE 0.9% 500 ML INFUS.BAG IV ONE (17:57)
[2023-07-27 18:56] VITALS: BP 101/57; PULSE 61; TEMP 98.2
== END 2023-07-27 21:23 | disposition home or self-care (01) ==
LOC: JER 13:41
PROC: 3E033NZ Introduction of Analgesics, Hypnotics, Sedatives into Peripheral Vein, Percutaneous Approach (ICD-10-PCS; principal; 2023-07-27)
PROC: 3E0333Z Introduction of Anti-inflammatory into Peripheral Vein, Percutaneous Approach (ICD-10-PCS; 2023-07-27)
PROC: 3E0337Z Introduction of Electrolytic and Water Balance Substance into Peripheral Vein, Percutaneous Approach (ICD-10-PCS; 2023-07-27)
DX: O03.9 Complete or unspecified spontaneous abortion without complication (principal); O26.892 Other specified pregnancy related conditions, second trimester; R10.84 Generalized abdominal pain
CPT/HCPCS: 36415; 76817-TC; 81003; 84702; 84703; 85025; 85610; 85730; 86850; 86900; 86901; 88305-TC; 99284-25; J0131

== ENCOUNTER 2024-03-31 17:30 | Inpatient (IN) | payer OTHER ==
[2024-03-31] MEDS: AMPICILLIN - 2 GM in SODIUM CHLORIDE 100 ML IVPB ONE (18:15)
[2024-03-31] MEDS: MAGNESIUM 4GM/H20 - 4 GM/100 ML IVPB IVPB ONE (18:22)
[2024-03-31] MEDS: BETAMET ACET/BETAMET NA PH 30 MG/5 ML VIAL IM ONE (18:25)
[2024-03-31 18:49] VITALS: BMI 28.3
[2024-03-31] MEDS ORDERED: ERYTHROMYCIN *INJECTION* 500 MG VIAL IVPB ONE (18:51)
[2024-03-31] MEDS: MAGNESIUM SULFATE 20GM/500ML - 20 GM/500 ML INFUS.BAG IVPB SCH (18:58)
[2024-03-31] MEDS: LACTATED RINGERS SOLUTION 1,000 ML/1,000 ML INFUS.BAG IV SCH (19:00)
[2024-03-31] MEDS ORDERED: AZITHROMYCIN IVPB 500 MG/250 ML BAG IVPB ONE (19:01)
[2024-03-31] MEDS: ERYTHROMYCIN IVPB ONE (19:27)
[2024-03-31] MEDS: SODIUM CHLORIDE IVPB ONE (19:27)
[2024-03-31 19:39] VITALS: BP 118/63; PULSE 92; RESP 18
== END 2024-03-31 19:30 | disposition short-term general hospital (02) | DRG 566 ==
LOC: JLDR 17:30
PROVIDERS: ADMIT Obstetrics & Gynecology; ATTEND Obstetrics & Gynecology
DX: O42.913 Preterm premature rupture of membranes, unspecified as to length of time between rupture and onset of labor, third trimester (principal); Z3A.29 29 weeks gestation of pregnancy
CPT/HCPCS: 87635; 96372